=== PATIENT | female | born 1965 | race Caucasian/White ===

== ENCOUNTER 2017-01-23 22:36 | Emergency (ER) | payer MEDICAID, OTHER ==
[~2017-01-23] VITALS: Ht 162.6 cm; Wt 55.0 kg
[2017-01-23] MEDS ORDERED: ONDANSETRON HCL 4 MG/2 ML VIAL IV PUSH ONE (22:45)
[2017-01-23] MEDS ORDERED: SODIUM CHLORID 0.9% 500 ML INJ 500 ML IV ONE (22:45)
[2017-01-23] MEDS ORDERED: MORPHINE SULFATE 4 MG/ML INJ IV PUSH ONE (22:45)
[2017-01-23] MEDS ORDERED: SODIUM CHLORIDE 0.9% FLUSH 10 ML FLUSH IVF PRN (22:45)
--- NOTE | 2017-01-23 22:48 | PD ---
HPI Chief Complaint: chest pain Time Seen by Provider: 22:44 Travel History International Travel<30 days: No Contact w/Intl Traveler<30days: No Traveled to known affect area: No History of Present Illness HPI The patient is a 51-year-old female who presents to the emergency department via EMS for chest pain. The patient states she's had intermittent substernal chest pain for several months. The pain is intermittent, sharp, worse with palpation, and started earlier tonight after drinking alcohol. She denies any nausea, vomiting, shortness of breath, or diaphoresis. The patient does have a history of hypertension but is not currently on medications. She also has a history of tobacco use. The patient denies any known history of CAD , diabetes, hyperlipidemia, or significant family medical history for early heart disease. She denies any significant abdominal pain with her symptoms. She does admit to drinking alcohol earlier tonight, is unable to quantify the amount of alcohol she consumed. The patient received aspirin and nitroglycerin sublingual by EMS prior to arrival, however, this did not alleviate her symptoms. Symptoms are moderate, there are no alleviating or exacerbating factors. She denies any exertional symptoms. PFSH Past Medical History Bipolar Disorder: Yes Ovarian Cysts: Yes Past Surgical History Narrative Surgical Noncontributory Social History Alcohol Use: Yes (1 PINT DAILY) Tobacco Use: Yes (2 CIGARETTES DAILY) Substance Use: No Allergies-Medications (Allergen,Severity, Reaction): Coded Allergies: No Known Allergies (Unverified , 01/23/17) Reported Meds & Prescriptions Reported Meds & Active Scripts Active Reported Seroquel (Quetiapine Fumarate) 50 Mg Tab 50 Mg PO HS Review of Systems Except as stated in HPI: all other systems reviewed are Neg HENT: No: Lightheadedness Cardiovascular: Positive: Chest Pain or Discomfort Respiratory: Positive: Pleuritic Pain, No: Shortness of Breath Gastrointestinal: No: Nausea, Vomiting, Abdominal Pain Musculoskeletal: No: Weakness, Edema Psychiatric: Positive: Substance Abuse (alcohol abuse) Physical Exam Narrative GENERAL: Awake, alert, nontoxic-appearing 51-year-old female who appears her stated age and is in no acute respiratory distress. SKIN: Focused skin assessment warm/dry. The patient does have a rash just located in the inguinal region, examined in the presence of a female nurse. It is within the underwear distribution, erythematous, slightly elevated, with a few satellite lesions. Unsure if this is fungal versus contact dermatitis. HEAD: Atraumatic. Normocephalic. EYES: Pupils equal and round. Mild injection bilateral. ENT: No nasal bleeding or discharge. Breath smells of alcohol. NECK: Trachea midline. No JVD. CARDIOVASCULAR: Regular rate and rhythm. No murmur appreciated. Sternal border is tender to palpation and reproduces symptoms. RESPIRATORY: No accessory muscle use. Clear to auscultation. Breath sounds equal bilaterally. GASTROINTESTINAL: Abdomen soft, non-tender, nondistended. No rebound tenderness. MUSCULOSKELETAL: No obvious deformities. No clubbing. No cyanosis. No edema. NEUROLOGICAL: Awake and alert. No obvious cranial nerve deficits. Motor grossly within normal limits. Normal speech. PSYCHIATRIC: Appears intoxicated. Data Data Last Documented VS Vital Signs Date Time Temp Pulse Resp B/P Pulse Ox O2 Delivery O2 Flow Rate FiO2 01/24/17 02:09 88 18 122/80 98 Room Air 01/24/17 00:18 2 01/23/17 22:50 98.1 Orders Electrocardiogram (01/23/17 22:44) Ckmb (Isoenzyme) Profile (01/23/17 22:44) Complete Blood Count With Diff (01/23/17 22:44) Comprehensive Metabolic Panel (01/23/17 22:44) Magnesium (Mg) (01/23/17 22:44) Prothrombin Time / Inr (Pt) (01/23/17 22:44) Act Partial Throm Time (Ptt) (01/23/17 22:44) Troponin I (01/23/17 22:44) Lipase (01/23/17 22:44) Chest, Single Ap (01/23/17 22:44) Ecg Monitoring (01/23/17 22:44) Bilateral Bp Monitoring (01/23/17 22:44) Iv Access Insert/Monitor (01/23/17 22:44) Oximetry (01/23/17 22:44) Oxygen Administration (01/23/17 22:44) Morphine Inj (Morphine Inj) (01/23/17 22:45) Sodium Chloride 0.9% Flush (Ns Flush) (01/23/17 22:45) Sodium Chlorid 0.9% 500 Ml Inj (Ns 500 M (01/23/17 22:45) Ondansetron Inj (Zofran Inj) (01/23/17 22:45) Alcohol (Ethanol) (01/23/17 22:48) CKMB (01/23/17 22:50) CKMB% (01/23/17 22:50) Troponin I (01/24/17 01:50) Labs Laboratory Tests Test 01/23/17 01/24/17 22:50 01:43 White Blood Count 3.1 TH/MM3 Red Blood Count 3.59 MIL/MM3 Hemoglobin 12.8 GM/DL Hematocrit 35.9 % Mean Corpuscular Volume 99.9 FL Mean Corpuscular Hemoglobin 35.8 PG Mean Corpuscular Hemoglobin 35.8 % Concent Red Cell Distribution Width 14.5 % Platelet Count 128 TH/MM3 Mean Platelet Volume 7.8 FL Neutrophils (%) (Auto) 31.9 % Lymphocytes (%) (Auto) 55.4 % Monocytes (%) (Auto) 8.3 % Eosinophils (%) (Auto) 3.6 % Basophils (%) (Auto) 0.8 % Neutrophils # (Auto) 1.0 TH/MM3 Lymphocytes # (Auto) 1.7 TH/MM3 Monocytes # (Auto) 0.3 TH/MM3 Eosinophils # (Auto) 0.1 TH/MM3 Basophils # (Auto) 0.0 TH/MM3 CBC Comment DIFF FINAL Differential Comment Prothrombin Time 10.9 SEC Prothromb Time International 1.0 RATIO Ratio Activated Partial 26.4 SEC Thromboplast Time Sodium Level 145 MEQ/L Potassium Level 3.5 MEQ/L Chloride Level 108 MEQ/L Carbon Dioxide Level 27.8 MEQ/L Anion Gap 9 MEQ/L Blood Urea Nitrogen 10 MG/DL Creatinine 0.67 MG/DL Estimat Glomerular Filtration 92 ML/MIN Rate Random Glucose 86 MG/DL Calcium Level 8.4 MG/DL Magnesium Level 1.8 MG/DL Total Bilirubin 0.4 MG/DL Aspartate Amino Transf 113 U/L (AST/SGOT) Alanine Aminotransferase 68 U/L (ALT/SGPT) Alkaline Phosphatase 100 U/L Total Creatine Kinase 215 U/L Creatine Kinase MB 1.2 NG/ML Creatine Kinase MB % 0.6 % Troponin I LESS THAN 0.02 LESS THAN 0.02 NG/ML NG/ML Total Protein 7.6 GM/DL Albumin 3.9 GM/DL Lipase 170 U/L Ethyl Alcohol Level 332 MG/DL MDM Medical Decision Making Medical Screen Exam Complete: Yes Emergency Medical Condition: Yes Medical Record Reviewed: Yes Interpretation(s) EKG reveals normal sinus rhythm with a rate 85. Q wave noted in lead 3. Last Impressions Chest X-Ray 01/23/17 2244 Signed Impressions: Service Date/Time: Monday, January 23, 2017 22:40 - CONCLUSION: Atelectasis at the lung bases. Otherwise, no acute cardiopulmonary abnormality is identified. Dilip Keith MD Laboratory Tests Test 01/23/17 01/24/17 22:50 01:43 White Blood Count 3.1 TH/MM3 Red Blood Count 3.59 MIL/MM3 Hemoglobin 12.8 GM/DL Hematocrit 35.9 % Mean Corpuscular Volume 99.9 FL Mean Corpuscular Hemoglobin 35.8 PG Mean Corpuscular Hemoglobin 35.8 % Concent Red Cell Distribution Width 14.5 % Platelet Count 128 TH/MM3 Mean Platelet Volume 7.8 FL Neutrophils (%) (Auto) 31.9 % Lymphocytes (%) (Auto) 55.4 % Monocytes (%) (Auto) 8.3 % Eosinophils (%) (Auto) 3.6 % Basophils (%) (Auto) 0.8 % Neutrophils # (Auto) 1.0 TH/MM3 Lymphocytes # (Auto) 1.7 TH/MM3 Monocytes # (Auto) 0.3 TH/MM3 Eosinophils # (Auto) 0.1 TH/MM3 Basophils # (Auto) 0.0 TH/MM3 CBC Comment DIFF FINAL Differential Comment Prothrombin Time 10.9 SEC Prothromb Time International 1.0 RATIO Ratio Activated Partial 26.4 SEC Thromboplast Time Sodium Level 145 MEQ/L Potassium Level 3.5 MEQ/L Chloride Level 108 MEQ/L Carbon Dioxide Level 27.8 MEQ/L Anion Gap 9 MEQ/L Blood Urea Nitrogen 10 MG/DL Creatinine 0.67 MG/DL Estimat Glomerular Filtration 92 ML/MIN Rate Random Glucose 86 MG/DL Calcium Level 8.4 MG/DL Magnesium Level 1.8 MG/DL Total Bilirubin 0.4 MG/DL Aspartate Amino Transf 113 U/L (AST/SGOT) Alanine Aminotransferase 68 U/L (ALT/SGPT) Alkaline Phosphatase 100 U/L Total Creatine Kinase 215 U/L Creatine Kinase MB 1.2 NG/ML Creatine Kinase MB % 0.6 % Troponin I LESS THAN 0.02 LESS THAN 0.02 NG/ML NG/ML Total Protein 7.6 GM/DL Albumin 3.9 GM/DL Lipase 170 U/L Ethyl Alcohol Level 332 MG/DL Differential Diagnosis Differential diagnosis includes alcohol intoxication, costochondritis, pleurisy , GERD, esophageal spasm, pancreatitis, acute coronary syndrome, pleural effusion, pneumonia, pulmonary embolism. Narrative Course IV was established, labs are drawn and sent, and the patient was placed on cardiac telemetry monitoring and continuous pulse oximetry monitoring. EKG was ordered and interpreted. The patient received aspirin and nitroglycerin sublingual prior to arrival which did not alleviate her symptoms. Lipase level was sent to lab. Chest x-ray reveals atelectasis, otherwise unremarkable. The patient did tell the nurse that she had a rash in the inguinal region, therefore , inguinal region was examined in the presence of a female nurse. The patient does have a rash that appears to be within the distribution of her underwear, however, there is a few satellite lesions. This could be fungal versus contact dermatitis or irritant from her underwear. The patient's alcohol level is 332. The initial troponin was negative, therefore, repeat troponin at 3 hours was ordered. The second troponin is negative, patient will be discharged home when she is able to ambulate has a safe disposition home. Diagnosis Primary Impression: Alcohol intoxication Qualified Code: F10.920 - Alcohol intoxication, uncomplicated Additional Impressions: Atypical chest pain Rash of groin Patient Instructions: General Instructions Additional Instructions: Decrease alcohol intake. Take a baby aspirin daily. Follow-up with your primary physician. Return if symptoms worsen or progress. Med/Other Pt SpecificInfo: Other (take a baby aspirin daily.) Scripts Nystatin-Triamcinolone 100,000-0.1 Unit/Gm Cream1 Applic TOPICAL BID #30 GM Ref 0 Prov:Percy Chiu MD 01/24/17 Disposition: 01 DISCHARGE HOME Condition: Stable Percy Chiu MD Jan 23, 2017 22:48
[2017-01-23 22:50] VITALS: BP 119/75; PULSE 93; RESP 20; TEMP 98.1; O2SAT 95
[2017-01-23] MEDS ORDERED: SERO50TA PO (22:52)
--- NOTE | 2017-01-23 23:06 | RADRPT ---
EXAM DATE/TIME: 01/23/2017 22:40 [facility] COMPARISON: No previous studies available for comparison. INDICATIONS : Chest pain. MEDICAL HISTORY : None. SURGICAL HISTORY : None. ENCOUNTER: Initial ACUITY: 1 day PAIN SCORE: 10/10 LOCATION: Bilateral chest FINDINGS: Portable AP view of the chest demonstrates a normal-sized cardiac silhouette. No effusion, consolidat ion, or pneumothorax is visualized. The bones and soft tissues demonstrate no acute abnormality. Ther e is atelectasis at the lung bases. CONCLUSION: Atelectasis at the lung bases. Otherwise, no acute cardiopulmonary abnormality is identified. Dilip Keith MD on January 23, 2017 at 23:04 Board Certified Radiologist. This report was verified electronically.
[2017-01-23 23:15] LABS: BASOPHIL % 0.8 % (0.0-2.0); EOSINOPHIL # 0.1 TH/MM3 (0-0.4); EOSINOPHIL % 3.6 % (0.0-4.0); HEMATOCRIT 35.9 % (35.0-46.0); HEMO FLAGS DIFF FINAL; LYMPH % 55.4 % (9.0-44.0); LYMPHOCYTE # 1.7 TH/MM3 (1.0-4.8); MEAN CELL VOLUME 99.9 FL (80.0-100.0); MEAN CORPUSCULAR HEMOGLOBIN 35.8 PG (27.0-34.0); MEAN CORPUSCULAR HGB CONC 35.8 % (32.0-36.0); MONO % 8.3 % (0.0-8.0); NEUT % 31.9 % (16.0-70.0); PLATELET COUNT 128 TH/MM3 (150-450); RED BLOOD COUNT 3.59 MIL/MM3 (4.00-5.30); RED CELL DISTRIBUTION WIDTH 14.5 % (11.6-17.2); WHITE BLOOD COUNT 3.1 TH/MM3 (4.0-11.0)
[2017-01-23 23:25] LABS: APTT (PATIENT) 26.4 SEC (24.3-30.1); PROTHROMBIN TIME - PATIENT 10.9 SEC (9.8-11.6)
[2017-01-23 23:33] LABS: ALT (GPT) 68 U/L (10-53); ANION GAP 9 MEQ/L (5-15); AST (GOT) 113 U/L (15-37); BICARBONATE 27.8 MEQ/L (21.0-32.0); BLOOD UREA NITROGEN 10 MG/DL (7-18); CHLORIDE 108 MEQ/L (98-107); GLOMERULAR FILTRATION RATE 92 ML/MIN (>89); MAGNESIUM 1.8 MG/DL (1.5-2.5); POTASSIUM 3.5 MEQ/L (3.5-5.1); SODIUM (NA) 145 MEQ/L (136-145)
[2017-01-23 23:40] LABS: ALKALINE PHOSPHATASE 100 U/L (45-117); CREATINE KINASE 215 U/L (26-192); TOTAL BILIRUBIN ADULT 0.4 MG/DL (0.2-1.0)
[2017-01-23 23:47] VITALS: BP 126/82; PULSE 86; RESP 18; O2SAT 98
[2017-01-23 23:52] LABS: CKMB 1.2 NG/ML (0.5-3.6)
[2017-01-24 00:18] VITALS: BP_SYST 127; BP_SYST 131; BP_DIAS 70; BP_DIAS 78; PULSE 89; RESP 18; O2SAT 99
[2017-01-24 01:13] VITALS: BP 110/64; PULSE 79; RESP 16; O2SAT 95
[2017-01-24 02:09] VITALS: BP 122/80; PULSE 88; RESP 18; O2SAT 98
[2017-01-24] MEDS ORDERED: NYSTCRE29 TOPICAL (02:48)
--- NOTE | 2017-01-24 14:20 | EKG ---
Date Performed: 01/23/2017 Time Performed: 22:49:36 PTAGE: 51 years EKG: Sinus rhythm Normal EKG Compared to prior tracing no significant change PREVIOUS TRACING : 02/28/2015 13.06 DOCTOR: Jose Rafael Chou Interpretating Date/Time 01/24/2017 14:19:03
== END 2017-01-24 08:34 | disposition home or self-care (01) ==
LOC: NEPE 22:36
DX: F10.920 Alcohol use, unspecified with intoxication, uncomplicated (principal); R07.89 Other chest pain; R21 Rash and other nonspecific skin eruption; F31.9 Bipolar disorder, unspecified; F17.210 Nicotine dependence, cigarettes, uncomplicated; Z79.899 Other long term (current) drug therapy
CPT/HCPCS: 71010; 80053; 80307; 82550; 82552; 83690; 83735; 84484; 85025; 85610; 85730; 93005; 96361; 96374; 96375; 99285; J2270; J2405; J7040

== ENCOUNTER 2017-04-19 13:14 | Emergency (ER) | payer OTHER ==
[~2017-04-19] VITALS: Ht 162.6 cm; Wt 65.0 kg
[~2017-04-19 13:14] MED LIST: NYSTCRE29 TOPICAL; SERO50TA PO
[2017-04-19 13:16] VITALS: BP 120/84; PULSE 93; RESP 20; TEMP 97.7; O2SAT 99
[2017-04-19] MEDS ORDERED: CEPH-460 PO (13:32)
[2017-04-19] MEDS ORDERED: BACT800T5 PO (13:32)
[2017-04-19] MEDS ORDERED: PERM5CRE11 TOPICAL (13:32)
--- NOTE | 2017-04-19 13:33 | PD ---
HPI Chief Complaint: Skin Problem Time Seen by Provider: 13:30 Travel History International Travel<30 days: No Contact w/Intl Traveler<30days: No Traveled to known affect area: No History of Present Illness HPI 51-year-old female presents to emergency department complaining of a generalized itchy rash 2 months. Reports scabbed areas on her buttocks that have been on and off for the past 2 months also. Denies fever, vomiting. Reports alcohol use daily. Patient smells of EtOH. Has tried a topical antibiotic cream with no relief of symptoms. Denies new lotions, soaps, detergents, medications, foods, environmental exposures. Apparently a friend of her name Bradford also has the same symptoms. Location is to back, abdomen, buttocks. Symptoms are mild in severity. No known aggravating or relieving factors. No known allergies. Has no other medical complaints. No other modifying factors or associated signs and symptoms. PFSH Past Medical History Bipolar Disorder: Yes ?: Not Ovarian Cysts: Yes Social History Alcohol Use: Yes (1 PINT DAILY) Tobacco Use: Yes (2 CIGARETTES DAILY) Substance Use: Yes Allergies-Medications (Allergen,Severity, Reaction): Coded Allergies: No Known Allergies (Unverified , 01/23/17) Reported Meds & Prescriptions Reported Meds & Active Scripts Active Keflex (Cephalexin) 500 Mg Cap 500 Mg PO Q6H 10 Days Bactrim DS (Sulfamethoxazole-Trimethoprim) 800-160 Mg Tab 1 Tab PO BID 10 Days Elimite Topical (Permethrin) 5% Cream 1 Applic TOPICAL ONCE Nystatin-Triamcinolone 100,000-0.1 Unit/Gm Cream 1 Applic TOPICAL BID Reported Seroquel (Quetiapine Fumarate) 50 Mg Tab 50 Mg PO HS Review of Systems Except as stated in HPI: all other systems reviewed are Neg Physical Exam Narrative GENERAL: Well-nourished, well-developed female patient, in no acute distress; smells of EtOH; afebrile, nontoxic-appearing SKIN: Warm and dry. Generalized erythremic pimple-like rash to back and abdomen. Scabbed lesions noted to bilateral buttocks; all areas are surrounded by minimal erythema; without drainage. Areas on her back appear excoriated but without cellulitic process noted. HEAD: Atraumatic. Normocephalic. EYES: Pupils equal and round. No scleral icterus. No injection or drainage. ENT: Mucosa pink and moist. Airway patent. NECK: Trachea midline. CARDIOVASCULAR: Regular rate. RESPIRATORY: No accessory muscle use. GASTROINTESTINAL: Round. MUSCULOSKELETAL: No obvious deformities. No clubbing. No cyanosis. No edema. NEUROLOGICAL: Awake and alert. Oriented 3. No obvious cranial nerve deficits. Motor grossly within normal limits. Normal speech. PSYCHIATRIC: Appropriate mood and affect; insight and judgment normal. Data Data Last Documented VS Vital Signs Date Time Temp Pulse Resp B/P (MAP) Pulse Ox O2 Delivery O2 Flow Rate FiO2 04/19/17 13:16 97.7 93 20 120/84 (96) 99 Room Air Orders Orders Ed Discharge Order (04/19/17 13:34) MDM Medical Decision Making Medical Screen Exam Complete: Yes Emergency Medical Condition: Yes Medical Record Reviewed: Yes Differential Diagnosis Scabies, bedbugs, MRSA, MSSA, folliculitis, abscess of buttocks, cellulitis Narrative Course 51-year-old female physical exam consistent with rash and other nonspecific skin eruption to her abdomen, back, buttocks. Rash to her back and abdomen appear consistent with possible scabies rash. The lesions to her buttocks appear consistent with possible skin infection. Patient smells of EtOH. She is afebrile and nontoxic-appearing. She denies fever, vomiting. I'll prescribe Elimite cream and treat empirically with Keflex and Bactrim for possible skin infection. Elimite, Keflex, Bactrim prescribed for home. Instructed patient to follow up with primary care provider. Patient verbalizes understanding and agreement with treatment plan. Patient is medically cleared and stable for discharge. Discussed reasons to return to the emergency department. Patient agrees with treatment plan. The patients vital signs are stable and the patient is stable for outpatient follow-up and treatment. Patient discharged home, stable and in no acute distress. Diagnosis Primary Impression: Rash and other nonspecific skin eruption Referrals: [facility] [employer] Primary Care Physician Patient Instructions: Acute Rash (ED), General Instructions, Scabies (ED) Additional Instructions: Antibiotics as prescribed Elimite cream as directed; repeat in one week as needed Soaking in cool water or apply cool, wet washcloths to irritated areas to minimize itching Apply anti-itch creams, such as calamine lotion, to relieve pain and itching as needed Fdoi-mrm-byfogep antihistamines as needed and as directed to relieve allergic symptoms caused by scabies Wash all pillows, linens, blankets, etc. in hot water and dry in hot dryer Bag and all unwashable linens, [place] stuffed animals, etc. in a tightly sealed garbage bag for up to 2 weeks Follow-up with assistant director of residence life Follow-up with primary care provider Return to the emergency department immediately with worsening of symptoms Med/Other Pt SpecificInfo: Prescription(s) given Scripts Cephalexin (Keflex) 500 Mg Cap 500 MG PO Q6H for Infection for 10 Days, #40 CAP 0 Refills Prov: Lisa Taylor 04/19/17 Sulfamethoxazole-Trimethoprim (Bactrim DS) 800-160 Mg Tab 1 TAB PO BID for Infection for 10 Days, #20 TAB 0 Refills Prov: Lisa Taylor 04/19/17 Permethrin Topical (Elimite Topical) 5% Cream 1 APPLIC TOPICAL ONCE for Scabies, #1 TUBE 1 Refill Prov: Lisa Taylor 04/19/17 Disposition: 01 DISCHARGE HOME Condition: Stable Lisa Taylor Apr 19, 2017 13:33
== END 2017-04-19 13:54 | disposition home or self-care (01) ==
LOC: NEPK 13:14
DX: R21 Rash and other nonspecific skin eruption (principal); Z72.0 Tobacco use
CPT/HCPCS: 99284

== ENCOUNTER 2017-07-31 15:34 | Emergency (ER) | payer OTHER ==
[~2017-07-31] VITALS: Ht 160 cm; Wt 61.4 kg
[~2017-07-31 15:34] MED LIST changes: +BACT800T5 PO; +CEPH-460 PO; -NYSTCRE29 TOPICAL; +PERM5CRE11 TOPICAL
[2017-07-31 15:59] VITALS: BP 156/100; PULSE 90; RESP 18; TEMP 98.5; O2SAT 98
[2017-07-31] MEDS ORDERED: BACT800T5 PO (16:36)
--- NOTE | 2017-07-31 16:37 | PD ---
HPI Chief Complaint: Skin Problem Time Seen by Provider: 16:23 Travel History International Travel<30 days: No Contact w/Intl Traveler<30days: No Traveled to known affect area: No History of Present Illness HPI This is a 52-year-old female here with right hand pain and swelling since this morning. She reports she was cleaning out the gutters of her trailer when something "bit her" she had immediate pain and swelling. She denies history of IV drug use. No fever chills. She did not attempt to ice or elevate the extremity. He has pain at the site of the hand which is constant, nonradiating severity moderate. No aggravating or alleviating factors. PFSH Past Medical History Bipolar Disorder: Yes Ovarian Cysts: Yes Social History Alcohol Use: Yes (1 PINT DAILY) Tobacco Use: Yes (2 CIGARETTES DAILY) Substance Use: Yes Allergies-Medications (Allergen,Severity, Reaction): Coded Allergies: No Known Allergies (Unverified Adverse Reaction, Unknown, 07/31/17) Reported Meds & Prescriptions Reported Meds & Active Scripts Active Bactrim DS (Sulfamethoxazole-Trimethoprim) 800-160 Mg Tab 1 Tab PO BID Reported Seroquel (Quetiapine Fumarate) 50 Mg Tab 50 Mg PO HS Review of Systems Except as stated in HPI: all other systems reviewed are Neg General / Constitutional: No: Fever, Chills, Weight Gain, Weight Loss, Other HENT: No: Headaches Cardiovascular: No: Chest Pain or Discomfort Respiratory: No: Shortness of Breath Gastrointestinal: No: Abdominal Pain Genitourinary: No: Dysuria Physical Exam Narrative GENERAL: Alert and oriented 52-year-old female. Patient is hostile and argumentative during exam SKIN: Hematoma noted to the right hand dorsal aspect. No surrounding saline is. HEAD: Normocephalic. Atraumatic. EYES: No injection or drainage. NECK: Supple, trachea midline. MUSCULOSKELETAL: No cyanosis. Notable swelling, tenderness, mild ecchymosis to the right hand dorsal aspect. Patient moves all fingers freely. Normal sensation. Brisk cap refill. Data Data Last Documented VS Vital Signs Date Time Temp Pulse Resp B/P (MAP) Pulse Ox O2 Delivery O2 Flow Rate FiO2 07/31/17 15:59 98.5 90 18 156/100 (118) 98 Room Air Orders Orders Ice / Cold Pack PRN (07/31/17 16:37) Ed Discharge Order (07/31/17 16:37) [facility] Medical Decision Making Medical Screen Exam Complete: Yes Emergency Medical Condition: Yes Differential Diagnosis Hematoma, abscess, sub-cutaneous retained foreign body Narrative Course This is a 52-year-old female here with right hand pain and swelling since this morning. The patient is very hostile and argumentative making exam quite difficult. She reports she was cleaning out the gutters of her trailer when something "bit her" she had immediate pain and swelling. She reports she possibly contused area on something. She denies history of IV drug use. On exam she has what appears to be a developing hematoma to the dorsal aspect of the right hand. There is swelling and mild ecchymosis. The area is marked with a wound Pen. She has full range of motion and normal sensation of all digits. Brisk cap refill. She refused x-ray to rule out retained foreign body or fracture. Risk of refusing x-ray discussed. She verbalizes understanding. She'll be treated for potential abscess formation and instructed to return for recheck in one to 2 days. Diagnosis Primary Impression: Hematoma Referrals: [facility] Additional Instructions: Ice and elevate the extremity. Take the antibiotics as prescribed. Follow-up for recheck in 1- 2 days. Scripts Sulfamethoxazole-Trimethoprim (Bactrim DS) 800-160 Mg Tab 1 TAB PO BID for Infection, #20 TAB 0 Refills Prov: Marisol Vincent 07/31/17 Disposition: 01 DISCHARGE HOME Condition: Stable Marisol Vincent Jul 31, 2017 16:37
== END 2017-07-31 16:55 | disposition home or self-care (01) ==
LOC: NEPK 15:34
DX: S60.221A Contusion of right hand, initial encounter (principal); F31.9 Bipolar disorder, unspecified; Z72.0 Tobacco use
CPT/HCPCS: 99283

== ENCOUNTER 2017-08-30 14:56 | Emergency (ER) | payer OTHER ==
[~2017-08-30] VITALS: Ht 160 cm; Wt 62.0 kg
[~2017-08-30 14:56] MED LIST changes: -CEPH-460 PO; -PERM5CRE11 TOPICAL
[2017-08-30 15:17] VITALS: BP 141/81; PULSE 85; RESP 17; TEMP 98.3; O2SAT 97
[2017-08-30] MEDS ORDERED: SODIUM CHLOR 0.9% 1000 ML INJ 1,000 ML IV SCH (16:23)
--- NOTE | 2017-08-30 16:28 | PD ---
HPI Chief Complaint: Edema Time Seen by Provider: 16:22 Travel History International Travel<30 days: No Contact w/Intl Traveler<30days: No Traveled to known affect area: No History of Present Illness HPI 52-year-old female presents emergency department with 2 hour history of right ankle pain and swelling. Patient feels she may have been bit by an insect of some sort. She denies injury to the area. Patient has localized pain and swelling to the right lateral ankle. She denies fever, chills, shortness of breath, wheezing, or difficulty swallowing. Her chief complaint is pain. Pain is rated as 9 out of 10. Patient has no known drug allergies. PFSH Past Medical History Bipolar Disorder: Yes Depression: Yes Diminished Hearing: No Immunizations Current: No Ovarian Cysts: Yes Social History Alcohol Use: Yes (1 PINT DAILY) Tobacco Use: Yes (2 CIGARETTES DAILY) Substance Use: Yes Allergies-Medications (Allergen,Severity, Reaction): Coded Allergies: No Known Allergies (Unverified Adverse Reaction, Unknown, 08/30/17) Reported Meds & Prescriptions Reported Meds & Active Scripts Active Tramadol (Tramadol HCl) 50 Mg Tab 50 Mg PO Q6H PRN Bactrim DS (Sulfamethoxazole-Trimethoprim) 800-160 Mg Tab 1 Tab PO BID Reported Seroquel (Quetiapine Fumarate) 50 Mg Tab 50 Mg PO HS Review of Systems Except as stated in HPI: all other systems reviewed are Neg General / Constitutional: No: Fever Eyes: No: Visual changes HENT: No: Headaches Cardiovascular: No: Chest Pain or Discomfort Respiratory: No: Shortness of Breath Gastrointestinal: No: Abdominal Pain Genitourinary: No: Dysuria Musculoskeletal: No: Pain Skin: Positive Lesions (See history of present illness per), No Rash Neurologic: No: Weakness Psychiatric: No: Depression Endocrine: No: Polydipsia Hematologic/Lymphatic: No: Easy Bruising Physical Exam Narrative GENERAL: Patient appears in moderate distress. SKIN: Warm and dry. Normal color. Normal turgor. Patient is swelling over the right lateral ankle. There is no erythema. HEAD: Atraumatic. Normocephalic. EYES: Pupils equal and round. No scleral icterus. No injection or drainage. ENT: No nasal bleeding or discharge. Mucous membranes pink and moist. Pharynx is clear. Uvula is midline. No swelling. Airways patent. NECK: Trachea midline. Supple nontender CARDIOVASCULAR: Regular rate and rhythm. RESPIRATORY: No accessory muscle use. Clear to auscultation. Breath sounds equal bilaterally. GASTROINTESTINAL: Abdomen soft, non-tender, nondistended. Hepatic and splenic margins not palpable. MUSCULOSKELETAL: Extremities without clubbing, cyanosis, or edema. No obvious deformities. Patient has tenderness with palpation over the right lateral ankle. NEUROLOGICAL: Awake and alert. No obvious cranial nerve deficits. Motor grossly within normal limits. Five out of 5 muscle strength in the arms and legs. Normal speech. PSYCHIATRIC: Appropriate mood and affect; insight and judgment normal. Data Data Last Documented VS Vital Signs Date Time Temp Pulse Resp B/P (MAP) Pulse Ox O2 Delivery O2 Flow Rate FiO2 08/30/17 15:17 98.3 85 17 141/81 (101) 97 Orders Orders Complete Blood Count With Diff (08/30/17 15:19) Comprehensive Metabolic Panel (08/30/17 15:19) Ecg Monitoring (08/30/17 16:23) Iv Access Insert/Monitor (08/30/17 16:23) Oximetry (08/30/17 16:23) Diphenhydramine Inj (Benadryl Inj) (08/30/17 16:30) Prednisone (Deltasone) (08/30/17 16:30) Famotidine Inj (Pepcid Inj) (08/30/17 16:30) Sodium Chlor 0.9% 1000 Ml Inj (Ns 1000 M (08/30/17 16:23) Sodium Chloride 0.9% Flush (Ns Flush) (08/30/17 16:30) Ankle, Complete (Wnj3mej) (08/30/17 16:23) Morphine Inj (Morphine Inj) (08/30/17 16:45) Ondansetron Inj (Zofran Inj) (08/30/17 16:45) Crutches (08/30/17 16:45) Boot Fracture (08/30/17 ) Morphine Inj (Morphine Inj) (08/30/17 17:00) Labs Laboratory Tests Test 08/30/17 15:45 White Blood Count 3.6 TH/MM3 Red Blood Count 3.54 MIL/MM3 Hemoglobin 12.8 GM/DL Hematocrit 36.4 % Mean Corpuscular Volume 102.6 FL Mean Corpuscular Hemoglobin 36.2 PG Mean Corpuscular Hemoglobin Concent 35.3 % Red Cell Distribution Width 16.1 % Platelet Count 167 TH/MM3 Mean Platelet Volume 7.0 FL Neutrophils (%) (Auto) 69.8 % Lymphocytes (%) (Auto) 20.8 % Monocytes (%) (Auto) 5.4 % Eosinophils (%) (Auto) 2.7 % Basophils (%) (Auto) 1.3 % Neutrophils # (Auto) 2.5 TH/MM3 Lymphocytes # (Auto) 0.8 TH/MM3 Monocytes # (Auto) 0.2 TH/MM3 Eosinophils # (Auto) 0.1 TH/MM3 Basophils # (Auto) 0.0 TH/MM3 CBC Comment DIFF FINAL Differential Comment Blood Urea Nitrogen 9 MG/DL Creatinine 0.65 MG/DL Random Glucose 100 MG/DL Total Protein 7.9 GM/DL Albumin 3.9 GM/DL Calcium Level 8.4 MG/DL Alkaline Phosphatase 133 U/L Aspartate Amino Transf (AST/SGOT) 115 U/L Alanine Aminotransferase (ALT/SGPT) 62 U/L Total Bilirubin 0.4 MG/DL Sodium Level 140 MEQ/L Potassium Level 3.2 MEQ/L Chloride Level 104 MEQ/L Carbon Dioxide Level 25.4 MEQ/L Anion Gap 11 MEQ/L Estimat Glomerular Filtration Rate 95 ML/MIN [facility] Medical Decision Making Medical Screen Exam Complete: Yes Emergency Medical Condition: Yes Differential Diagnosis Right lateral ankle pain. Insect bite. Ankle sprain. Narrative Course Patient is medically stable at time of exam Labs ordered including CBC, and CMP. IV access is obtained the patient is given 20 mg Pepcid IV, 25 mg diphenhydramine IV, and 40 mg prednisone p.o. X-ray of the right ankle is ordered as well. X-ray shows minimally displaced distal fibular fracture on the right ankle. Previous medications are canceled. Patient is given 2 mg morphine IV as well as 4 mg Zofran IV. Patient is placed in an orthotic boot and crutches. Patient is to follow-up with Dr. Marie with a mandatory follow-up placed. Patient is given a prescription for Tramadol 50 mg 1 every 6 hours as needed # 20. Diagnosis Primary Impression: Closed right ankle fracture Qualified Codes: S82.891A - Other fracture of right lower leg, initial encounter for closed fracture Referrals: Clint Marie MD Patient Instructions: Ankle Fracture (ED), Crutch Instructions (ED), General Instructions Additional Instructions: X-ray shows minimally displaced distal fibular fracture on the right ankle. Patient is given 2 mg morphine IV as well as 4 mg Zofran IV. Patient is placed in an orthotic boot and crutches. Patient is to follow-up with Dr. Marie with a mandatory follow-up placed. Patient is given a prescription for Tramadol 50 mg 1 every 6 hours as needed # 20. Med/Other Pt SpecificInfo: Prescription(s) given Scripts Tramadol (Tramadol) 50 Mg Tab 50 MG PO Q6H Y for PAIN, #20 TAB 0 Refills Prov: Faraz Soriano MD 08/30/17 Disposition: 01 DISCHARGE HOME Condition: Stable José Miguel Artis Aug 30, 2017 16:28
[2017-08-30] MEDS ORDERED: SODIUM CHLORIDE 0.9% FLUSH 10 ML FLUSH IV FLUSH PRN (16:30)
[2017-08-30] MEDS ORDERED: diphenhydrAMINE HCL 50 MG/ML VIAL IVP ONE (16:30)
[2017-08-30] MEDS ORDERED: FAMOTIDINE 20 MG/2 ML VIAL IV PUSH ONE (16:30)
[2017-08-30] MEDS ORDERED: predniSONE 20 MG TAB PO ONE (16:30)
--- NOTE | 2017-08-30 16:44 | RADRPT ---
EXAM DATE/TIME: 08/30/2017 16:31 [facility] COMPARISON: No previous studies available for comparison. INDICATIONS : Right ankle pain. Patient states she got an insect bite. MEDICAL HISTORY : None. SURGICAL HISTORY : None. ENCOUNTER: Initial ACUITY: 1 day PAIN SCORE: 10/10 LOCATION: Right ankle. FINDINGS: 3 views of the right ankle demonstrate an oblique minimally displaced fracture of the distal fibular metaphysis at the base of the lateral malleolus. No other fracture or dislocation is identified. The ankle mortise is intact. There is lateral ankle soft tissue swelling. CONCLUSION: Oblique minimally displaced distal fibular metaphyseal fracture with adjacent soft tissue swelling. Dilip Keith MD on August 30, 2017 at 16:42 Board Certified Radiologist. This report was verified electronically.
[2017-08-30] MEDS ORDERED: ONDANSETRON HCL 4 MG/2 ML VIAL IV PUSH ONE (16:45)
[2017-08-30] MEDS ORDERED: MORPHINE SULFATE 2 MG/ML INJ IM ONE (16:45)
[2017-08-30 16:49] LABS: AUTOMATED NEUTROPHIL # 2.5 TH/MM3 (1.8-7.7); BASOPHIL % 1.3 % (0.0-2.0); EOSINOPHIL # 0.1 TH/MM3 (0-0.4); EOSINOPHIL % 2.7 % (0.0-4.0); HEMATOCRIT 36.4 % (35.0-46.0); HEMOGLOBIN 12.8 GM/DL (11.6-15.3); LYMPH % 20.8 % (9.0-44.0); LYMPHOCYTE # 0.8 TH/MM3 (1.0-4.8); MEAN CELL VOLUME 102.6 FL (80.0-100.0); MEAN CORPUSCULAR HEMOGLOBIN 36.2 PG (27.0-34.0); MEAN CORPUSCULAR HGB CONC 35.3 % (32.0-36.0); MONO % 5.4 % (0.0-8.0); MONOCYTE # 0.2 TH/MM3 (0-0.9); NEUT % 69.8 % (16.0-70.0); PLATELET COUNT 167 TH/MM3 (150-450); RED BLOOD COUNT 3.54 MIL/MM3 (4.00-5.30); RED CELL DISTRIBUTION WIDTH 16.1 % (11.6-17.2); WHITE BLOOD COUNT 3.6 TH/MM3 (4.0-11.0)
[2017-08-30] MEDS ORDERED: MORPHINE SULFATE 2 MG/ML INJ IV PUSH ONE (17:00)
[2017-08-30 17:05] LABS: ALBUMIN 3.9 GM/DL (3.4-5.0); ALT (GPT) 62 U/L (10-53); AST (GOT) 115 U/L (15-37); BICARBONATE 25.4 MEQ/L (21.0-32.0); BLOOD UREA NITROGEN 9 MG/DL (7-18); CALCIUM 8.4 MG/DL (8.5-10.1); CHLORIDE 104 MEQ/L (98-107); CREATININE 0.65 MG/DL (0.50-1.00); GLOMERULAR FILTRATION RATE 95 ML/MIN (>89); GLUCOSE,RANDOM 100 MG/DL (74-106); SODIUM (NA) 140 MEQ/L (136-145)
[2017-08-30 17:07] LABS: ALKALINE PHOSPHATASE 133 U/L (45-117); TOTAL BILIRUBIN ADULT 0.4 MG/DL (0.2-1.0); TOTAL PROTEIN 7.9 GM/DL (6.4-8.2)
[2017-08-30] MEDS ORDERED: TRAM50TA PO (17:17)
== END 2017-08-30 18:01 | disposition home or self-care (01) ==
LOC: NEPD 14:56
DX: S82.891A Other fracture of right lower leg, initial encounter for closed fracture (principal); R22.41 Localized swelling, mass and lump, right lower limb; X58.XXXA Exposure to other specified factors, initial encounter; Z72.0 Tobacco use; Z72.89 Other problems related to lifestyle
CPT/HCPCS: 73610; 80053; 85025; 96374; 96375; 99284; E0113; J2270; J2405; J7030; L2114

== ENCOUNTER 2017-10-11 08:32 | Emergency (ER) | payer OTHER ==
[~2017-10-11] VITALS: Ht 160 cm; Wt 65.0 kg
[~2017-10-11 08:32] MED LIST changes: +TRAM50TA PO
[2017-10-11 08:42] VITALS: BP 178/101; PULSE 86; RESP 16; TEMP 96.7; O2SAT 100
--- NOTE | 2017-10-11 09:01 | PD ---
HPI Chief Complaint: Pain: Acute or Chronic Time Seen by Provider: 08:47 Travel History International Travel<30 days: No Contact w/Intl Traveler<30days: No Traveled to known affect area: No History of Present Illness HPI 52-year-old female complains of neck pain, low back pain, right knee pain. Patient states that she fell yesterday. Patient denied loss of consciousness. Patient denies any headache. Patient stated she has mild aching pain to the neck and low back area. Patient complaint of severe pain localized the right knee. Patient states that she landed on her right knee. Patient states that pain is sharp pain diffuse over the right knee joint. Patient denies any pain radiation. Patient states the pain is worse with movement. On a scale of 1-10 the pain is a 10. Patient was seen in emergency room at the end of August with a fracture distal right fibula. Patient had a cast placement and the cast was removed recently. Patient was seen by orthopedist Dr. Marie. Patient also complained nausea vomiting since yesterday. Patient denies abdominal pain. Patient had a few glasses of wine yesterday. PFSH Past Medical History Bipolar Disorder: Yes Anxiety: Yes Depression: Yes Diminished Hearing: No Medical other: Yes (ETOH ABUSE) Musculoskeletal: Yes (FRACTURE TIBIA- FIBULA ) Immunizations Current: No Tetanus Vaccination: Never Vaccinated Influenza Vaccination: No ?: Not Menopausal: Yes Ovarian Cysts: Yes Social History Alcohol Use: Yes (ETOH ABUSE) Tobacco Use: Yes (2 CIGARETTES DAILY) Substance Use: Yes (HX MARIJUANA) Allergies-Medications (Allergen,Severity, Reaction): Coded Allergies: No Known Allergies (Unverified Adverse Reaction, Unknown, 10/11/17) Reported Meds & Prescriptions Reported Meds & Active Scripts Active Reported Seroquel (Quetiapine Fumarate) 50 Mg Tab 50 Mg PO HS Review of Systems General / Constitutional: No: Fever Eyes: No: Visual changes HENT: No: Headaches Cardiovascular: No: Chest Pain or Discomfort Respiratory: No: Shortness of Breath Gastrointestinal: No: Abdominal Pain Genitourinary: No: Dysuria Musculoskeletal: Positive: Pain Skin: No Rash Neurologic: No: Weakness Psychiatric: No: Depression Endocrine: No: Polydipsia Hematologic/Lymphatic: No: Easy Bruising Physical Exam Narrative GENERAL: Well-nourished, well-developed patient. SKIN: Focused skin assessment warm/dry. HEAD: Normocephalic. EYES: No scleral icterus. No injection or drainage. NECK: Supple, trachea midline. No JVD or lymphadenopathy. Mild tenderness on palpation paraspinal area cervical spine. No midline tenderness. CARDIOVASCULAR: Regular rate and rhythm without murmurs, gallops, or rubs. RESPIRATORY: Breath sounds equal bilaterally. No accessory muscle use. GASTROINTESTINAL: Abdomen soft, non-tender, nondistended. MUSCULOSKELETAL: Patient has moderate soft tissue swelling and effusion to the right knee joint. Limited range of motion of the right knee joint secondary to pain. Knee joint stable. BACK: Mild to moderate tenderness in palpation lumbar area, without obvious deformity. No CVA tenderness. Neurologic exam normal. Data Data Last Documented VS Vital Signs Date Time Temp Pulse Resp B/P (MAP) Pulse Ox O2 Delivery O2 Flow Rate FiO2 10/11/17 08:42 96.7 86 16 178/101 (126) 100 Orders Orders Knee, Ltd (1 Or 2vws) (10/11/17 08:47) Spine, Cervical - Ltd (Ap&Lat) (10/11/17 08:47) Spine, Lumbar - Ltd (Ap & Lat) (10/11/17 08:47) Ct Knee W/O Contrast (10/11/17 ) Acetamin-Hydrocod 325-5 Mg ([place] 5-325 (10/11/17 12:00) Ondansetron Odt (Zofran Odt) (10/11/17 12:00) Splint Or Brace Apply/Monitor (10/11/17 11:48) Crutches (10/11/17 11:48) Sodium Chlor 0.9% 1000 Ml Inj (Ns 1000 M (10/11/17 12:00) Basic Metabolic Panel (Bmp) (10/11/17 11:51) Ondansetron Inj (Zofran Inj) (10/11/17 12:00) Labs Laboratory Tests Test 10/11/17 12:20 Blood Urea Nitrogen 12 MG/DL Creatinine 0.68 MG/DL Random Glucose 103 MG/DL Calcium Level 9.4 MG/DL Sodium Level 137 MEQ/L Potassium Level 3.5 MEQ/L Chloride Level 97 MEQ/L Carbon Dioxide Level 29.9 MEQ/L Anion Gap 10 MEQ/L Estimat Glomerular Filtration Rate 91 ML/MIN [facility] Medical Decision Making Medical Screen Exam Complete: Yes Emergency Medical Condition: Yes Differential Diagnosis Differential diagnosis including strain, fracture, dislocation. Narrative Course 52-year-old female with neck injury, low back injury, right knee injury. Status post fall last night. Knee immobilizer and crutches given. Normal saline solution 1 L IV bolus. Zofran 4 mg IV. Lortab 5/325, 1 tablet p.o. given. Diagnosis Primary Impression: Injury of ligament of right knee Qualified Codes: S89.91XA - Unspecified injury of right lower leg, initial encounter Additional Impression: Gastroenteritis Patient Instructions: General Instructions Additional Instructions: Take medications as directed. Ice pack as needed the right knee. Follow-up with orthopedist. Zofran as needed for nausea vomiting. Med/Other Pt SpecificInfo: Prescription(s) given Scripts Tramadol (Ultram) 50 Mg Tab 50 MG PO Q6H Y for PAIN, #20 TAB 0 Refills Prov: Zach De Santiago MD 10/11/17 Meloxicam (Mobic) 15 Mg Tab 15 MG PO DAILY for Pain, #20 TAB 0 Refills Prov: Zach De Santiago MD 10/11/17 Ondansetron Odt (Zofran Odt) 4 Mg Tab 4 MG SL Q6HR Y for Nausea/Vomiting, #10 TAB 0 Refills Prov: Zach De Santiago MD 10/11/17 Disposition: 01 DISCHARGE HOME Condition: Stable Zach De Santiago MD Oct 11, 2017 09:01
--- NOTE | 2017-10-11 09:40 | RADRPT ---
EXAM DATE/TIME: 10/11/2017 09:12 [facility] COMPARISON: No previous studies available for comparison. INDICATIONS : Fall last night on scooter. MEDICAL HISTORY : None. SURGICAL HISTORY : None. ENCOUNTER: Initial ACUITY: 1 day PAIN SCORE: 10/10 LOCATION: Right Knee FINDINGS: There is a large suprapatellar knee joint effusion. No acute fracture or dislocation is noted. Mild d egenerative changes are noted involving the patellofemoral and medial femorotibial joints. CONCLUSION: Large suprapatellar knee joint effusion. No acute fracture or dislocation. Mild degenerative changes involving the patellofemoral and medial femorotibial joints. Sina Ash MD on October 11, 2017 at 9:37 Board Certified Radiologist. This report was verified electronically.
--- NOTE | 2017-10-11 09:42 | RADRPT ---
EXAM DATE/TIME: 10/11/2017 09:17 [facility] COMPARISON: No previous studies available for comparison. INDICATIONS : Fall last night on scooter. MEDICAL HISTORY : None. SURGICAL HISTORY : None. ENCOUNTER: Initial ACUITY: 1 day PAIN SCORE: 6/10 LOCATION: Bilateral L-spine FINDINGS: There is a moderate compression deformity involving the T12 vertebral body of indeterminate age. No c ompression fracture of lumbar spine is noted. Mild degenerative changes and scoliosis are noted. No s pondylolisthesis or spondylolysis is noted. CONCLUSION: 1. Moderate compression deformity involving the T12 vertebral body of indeterminate age. 2. No acute compression fracture, spondylolisthesis or spondylolysis of the lumbar spine. 3. Mild degenerative changes and scoliosis of the thoracolumbar spine. Sina Ash MD on October 11, 2017 at 9:38 Board Certified Radiologist. This report was verified electronically.
--- NOTE | 2017-10-11 11:00 | RADRPT ---
EXAM DATE/TIME: 10/11/2017 09:14 [facility] COMPARISON: No previous studies available for comparison. INDICATIONS : Fall last night on scooter. MEDICAL HISTORY : None. SURGICAL HISTORY : None. ENCOUNTER: Initial ACUITY: 1 day PAIN SCORE: 2/10 LOCATION: Bilateral C-spine FINDINGS: Minimal loss of vertebral body height at C5. The preservation of vertebral body heights. Anatomic a lignment. No fracture. CONCLUSION: Normal ulcerative body height C5. Flexion extension films may be of benefit to exclude instability. Buck Castro MD FACR on October 11, 2017 at 10:56 Board Certified Radiologist. This report was verified electronically.
--- NOTE | 2017-10-11 11:22 | RADRPT ---
EXAM DATE/TIME: 10/11/2017 10:11 [facility] COMPARISON: KNEE RIGHT LTD (1 OR 2 VWS), October 11, 2017, 9:12. INDICATIONS : Fall yesterday, now with right leg pain and swelling. RADIATION DOSE: 9.19 CTDIvol (mGy) MEDICAL HISTORY : Substance abuse. SURGICAL HISTORY : None. ENCOUNTER: Initial ACUITY: 2 days PAIN SCALE: 10/10 LOCATION: Right distal leg TECHNIQUE: Volumetric scanning of the knee was performed. Using automated exposure control and adjustment of th e mA and/or kV according to patient size, radiation dose was kept as low as reasonably achievable to obtain optimal diagnostic quality images. DICOM format image data is available electronically for re view and comparison. FINDINGS: There is a very large knee joint effusion which extends into the suprapatellar bursa. There is no acu te fracture or dislocation of the right knee. Mild degenerative changes are noted involving the media l femoral tibial joint and the patellofemoral joint. No focal lytic or sclerotic lesion is noted. CONCLUSION: 1. Very large knee joint effusion which extends into the suprapatellar bursa. 2. Mild degenerative changes involving the medial femoral tibial joint and patellofemoral joint. 3. No acute fracture, dislocation or other focal bony abnormality. Sina Ash MD on October 11, 2017 at 11:15 Board Certified Radiologist. This report was verified electronically.
[2017-10-11] MEDS ORDERED: SODIUM CHLOR 0.9% 1000 ML INJ 1,000 ML IV ONE (12:00)
[2017-10-11] MEDS ORDERED: ACETAMINOPHEN/HYDROcodone 325 MG/5 MG TAB PO ONE (12:00)
[2017-10-11] MEDS ORDERED: ONDANSETRON ODT 4 MG TAB PO ONE (12:00)
[2017-10-11] MEDS ORDERED: ONDANSETRON HCL 4 MG/2 ML VIAL IV PUSH ONE (12:00)
[2017-10-11 12:54] LABS: BICARBONATE 29.9 MEQ/L (21.0-32.0); CALCIUM 9.4 MG/DL (8.5-10.1); CREATININE 0.68 MG/DL (0.50-1.00)
[2017-10-11] MEDS ORDERED: ZOFR4TAB3 SL (13:14)
[2017-10-11] MEDS ORDERED: TRAM50 PO (13:16)
[2017-10-11] MEDS ORDERED: MOBI15TA PO (13:16)
[2017-10-11 13:31] VITALS: BP 182/110; PULSE 88; RESP 16; O2SAT 97
== END 2017-10-11 14:44 | disposition home or self-care (01) ==
LOC: NEPC 08:32
DX: S89.91XA Unspecified injury of right lower leg, initial encounter (principal); K52.9 Noninfective gastroenteritis and colitis, unspecified; S19.9XXA Unspecified injury of neck, initial encounter; M25.461 Effusion, right knee; M41.9 Scoliosis, unspecified; M51.35 Other intervertebral disc degeneration, thoracolumbar region; W19.XXXA Unspecified fall, initial encounter
CPT/HCPCS: 72040; 72100; 73560; 73700; 80048; 96374; 99285; E0113; J2405; J7030; L1830

== ENCOUNTER 2018-08-19 02:49 | Inpatient (IN) ==
[2018-08-19 03:02] VITALS: TEMP 98.3
[2018-08-19 04:06] LABS: Hematocrit 32.7 % (35.0-46.0); Hemoglobin 11.2 gm/dL (11.6-15.3); Mean Corpuscular HGB Conc 34.3 % (32.0-36.0); Mean Corpuscular Hemoglobin 40.2 pg (27.0-34.0); Mean Platelet Volume 9.4 fL (7.0-11.0); Platelet Count 203 th/mm3 (150-450); Red Blood Count 2.79 mil/mm3 (4.00-5.30); White Blood Count 9.3 th/mm3 (4.0-11.0)
--- NOTE | 2018-08-19 04:07 | ED ---
HPI General Chief Complaint: Abdominal Pain Stated Complaint: Abd pain Time Seen by Provider: 08/19/18 03:04 Source: patient Mode of arrival: EMS Limitations: no limitations History of Present Illness HPI narrative: 53-year-old female came to the emergency room with history of shortness of breath that started since yesterday. Patient says that she left the hospital 1 week back after she was seen and treated for cirrhosis of liver. Patient appears to be quite jaundiced and says that she does not have history of COPD or asthma. She does not require oxygen at home. Her pulse ox was 98% on room air. Patient also says that she has been nauseous but has been nauseous for a while. Rest of her vital signs are within normal limit. Patient has been taking her medications like she supposed to. Related Data Home Medications Medication Instructions Recorded Confirmed lisinopril 0 mg PO DAILY 08/10/18 08/19/18 quetiapine [Seroquel] 50 mg PO HS 08/10/18 08/19/18 Previous Rx's Medication Instructions Recorded folic acid 1 mg PO DAILY #30 tab 08/12/18 lactulose 30 ml PO BID #2000 ml 08/12/18 multivitamin 1 cap PO DAILY #30 cap 08/12/18 thiamine HCl (vitamin B1) 100 mg PO DAILY #30 tab 08/12/18 Allergies Allergy/AdvReac Type Severity Reaction Status Date / Time No Known Allergies Allergy Verified 08/10/18 12:28 Review of Systems ROS: all other systems reviewed are negative [facility] Medical History Medical History Liver failure (Acute) Bipolar 1 disorder (Acute) Hypertension (Acute) Surgical History Surgical History H/O: (Acute) Social History Social History Substance History: No History of Abuse Second Hand Smoke Exposure: No Smoking Status: Never smoker How Often Do You Have a Drink Containing Alcohol: Never Recent Travel in [facility] within the Last 8 Weeks: No Recent Out of Country Travel within the Last 8 Weeks: No Immunization History Tetanus Immunization: Unsure Exam Narrative Exam Narrative: GENERAL: Awake, alert, mild distress SKIN: Focused skin assessment warm/dry. Jaundice, spider hemangioma, Caput HEAD: Atraumatic. Normocephalic. EYES: Pupils equal and round. Bilateral scleral icterus. No injection or drainage. ENT: No nasal bleeding or discharge. Mucous membranes pink and moist. NECK: Trachea midline. No JVD. CARDIOVASCULAR: Regular rate and rhythm. No murmur appreciated. RESPIRATORY: No accessory muscle use. Clear to auscultation. Breath sounds equal bilaterally. GASTROINTESTINAL: Abdomen soft, non-tender, nondistended. Hepatic and splenic margins not palpable. MUSCULOSKELETAL: No obvious deformities. No clubbing. No cyanosis. No edema. NEUROLOGICAL: Awake and alert. No obvious cranial nerve deficits. Motor grossly within normal limits. Normal speech. Tremulous, flapping tremors of the hands PSYCHIATRIC: Appropriate mood and affect; insight and judgment normal. Course Initial Documented Vital Signs Temperature 98.3 F 08/19/18 02:56 Pulse Rate 89 08/19/18 02:56 Respiratory Rate 20 08/19/18 02:56 Blood Pressure 122/72 08/19/18 02:56 Pulse Oximetry 98 08/19/18 02:56 Last Documented Vital Signs Temperature 98.3 F 08/19/18 02:56 Pulse Rate 100 H 08/19/18 07:17 Respiratory Rate 19 08/19/18 07:17 Blood Pressure 115/71 08/19/18 07:17 Pulse Oximetry 97 08/19/18 07:17 Medical Decision Making MDM Narrative Medical decision making narrative: 4:07 AM awaiting for blood test results. Patient was given Zofran for the nausea. I asked her if she has seen a GI specialist yet and she said she saw while she was in the hospital but has not been given any outpatient referrals yet. 5:47 AM blood test results are back and once again patient is significantly hyperbilirubinemia. Magnesium is low and so was her calcium and potassium. Replacement has been ordered. My concern is that patient has no GI referral in spite of her significantly abnormal physical and laboratory findings. Patient is clearly in florid portal hypertension. I discussed the case with the hospitalist was agreed to admit the patient. Patient does require GI consultation and referral as an outpatient established prior to discharge hopefully. 6:30 AM patient told me that she would not like to stay. Her daughter is coming from [place] for 4 days and she would come back after that. She was begging to go home almost. I explained to her that she can go as long as she understands the risk of leaving which would include . Patient was in full capacity to make decisions for herself and she signed AMA. The hospitalist was informed about this. Medical Screen Exam Complete: Yes Emergency Medical Condition: Yes Lab Data Result diagrams: 08/19/18 03:52 08/19/18 03:52 Lab Results 08/19/18 08/19/18 08/19/18 Range/Units 03:52 03:52 05:15 WBC 9.3 (4.0-11.0) th/mm3 RBC 2.79 L (4.00-5.30) mil/mm3 Hgb 11.2 L (11.6-15.3) gm/dL Hct 32.7 L (35.0-46.0) % MCV 117.0 H (80.0-100.0) fL MCH 40.2 H (27.0-34.0) pg MCHC 34.3 (32.0-36.0) % RDW 16.0 (11.6-17.2) % Plt Count 203 D (150-450) th/mm3 MPV 9.4 (7.0-11.0) fL Prelim Diff (Auto) Manual diff required WBC Differential Manual diff final Seg Neuts % (Manual) 77 H (16-70) % Band Neuts % (Manual) 5 (0-6) % Lymphocytes % (Manual) 11 (9-44) % Monocytes % (Manual) 6 (0-8) % Eosinophils % (Manual) 1 (0-4) % Abs Neuts (Manual) 7.6 (1.8-7.7) th/mm3 Nucleated RBCs/100 WBC 1 H (0-0) /100 WBC Differential Comment . Platelet Estimate Normal (Normal) Platelet Morphology Normal (Normal) Pappenheimer Bodies Present H (None) Target Cells 1+ H (None) Keratocytes Occ H (None) Sodium 138 (136-145) meq/L Potassium 4.1 (3.5-5.1) meq/L Chloride 105 (98-107) meq/L Carbon Dioxide 25.7 (21.0-32.0) meq/L Anion Gap 7 (5-15) meq/L BUN 11 (7-18) mg/dL Creatinine 0.98 (0.50-1.00) mg/dL Estimated GFR 59 L (>89) mL/min Random Glucose 88 (74-106) mg/dL Calcium 7.8 L (8.5-10.1) mg/dL Magnesium 1.4 L (1.5-2.5) mg/dL Total Bilirubin 10.3 H (0.2-1.0) mg/dL AST 168 H (15-37) U/L ALT 49 (10-53) U/L Alkaline Phosphatase 348 H (45-117) U/L Ammonia 41 H (11-32) mcmol/L Total Protein 7.2 D (6.4-8.2) g/dL Albumin 2.0 L (3.4-5.0) g/dL Lipase 165 (73-393) U/L Imaging Data Radiologist's impression: Chest X-Ray 08/19/18 03:43 CONCLUSION: No acute disease Discharge Plan Discharge Disposition Patient Disposition: 07 Against Medical Advice Discharge Order Discharge Orders: AMA Discharge (Routine); Ordered 08/19/18 Ordered By: Gonzalez Littlejohn ED Use Only Admit Order (Routine); Ordered 08/19/18 Ordered By: Gonzalez Littlejohn Physicians Team ED Provider: Gonzalez Littlejohn Primary Care Provider: Dc Kang Attending Provider: Dilia Durbin Other Providers: Junie Ochoa Discharge Interventions Interventions: Vital Signs Last Done: 08/19/18 03:01 Status ED Status: Admitted Patient
--- NOTE | 2018-08-19 04:15 | XR ---
EXAM DATE: 08/19/2018 4:07 AM EST AGE/SEX: 53 years / Female INDICATIONS: . Shortness of breath, bilateral lower extremity swelling. CLINICAL DATA: This is the patient's initial encounter. Patient reports that signs and symptoms have been present for 1 day and indicates a pain score of 0/10. MEDICAL/SURGICAL HISTORY: Cirrhosis. Hypertension. section. COMPARISON: [facility] [place], CHEST 1V SINGLE AP, 08/10/2018. . FINDINGS: PA and lateral views of the chest demonstrate the lungs to be symmetrically aerated without evidence of mass, infiltrate or effusion. The cardiomediastinal contours are unremarkable. Osseous structures are intact. CONCLUSION: No acute disease Electronically signed by: Dilip Leyva MD Board Certified Radiologist 08/19/2018 4:14 AM EST
[2018-08-19 04:38] LABS: Alanine Aminotransferase 49 U/L (10-53); Anion Gap 7 meq/L (5-15); Aspartate Aminotransferase 168 U/L (15-37); Blood Urea Nitrogen 11 mg/dL (7-18); Calcium 7.8 mg/dL (8.5-10.1); Carbon Dioxide 25.7 meq/L (21.0-32.0); Chloride 105 meq/L (98-107); Glomerular Filtration Rate 59 mL/min (>89); Glucose,Random 88 mg/dL (74-106); Lipase 165 U/L (73-393); Magnesium 1.4 mg/dL (1.5-2.5); Potassium 4.1 meq/L (3.5-5.1); Sodium 138 meq/L (136-145)
[2018-08-19 04:40] LABS: Alkaline Phosphatase 348 U/L (45-117); Total Protein 7.2 g/dL (6.4-8.2)
[2018-08-19 04:42] LABS: Eosinophils 1 % (0-4); Lymphocytes 11 % (9-44); Monocytes 6 % (0-8); Platelet Estimate Normal (Normal); Platelet Morphology Normal (Normal); Tallied Nucleated RBC 1 (0-0)
[2018-08-19 04:45] LABS: Pappenheimer Bodies Present; Target Cells 1+
[2018-08-19] MEDS ORDERED: Calcium Gluconate Inj 1 GM in Dextrose 5% in Water Inj 100 ML IV.SIG ONE ×2 (05:05)
[2018-08-19] MEDS ORDERED: Mag Sulf 1 gm/100 ml Premix 100 ML IV.SIG ONE (05:05)
[2018-08-19] MEDS ORDERED: LORazepam 1 MG Tablet PO PRN (05:52)
[2018-08-19] MEDS ORDERED: Haloperidol Inj 5 MG/ML Ampul IV.PUSH PRN (05:52)
[2018-08-19] MEDS ORDERED: Naloxone Inj 0.4 MG/ML Vial IV.PUSH PRN (05:55)
[2018-08-19] MEDS ORDERED: Bisacodyl 10 MG Supp RECTAL PRN (05:55)
[2018-08-19 07:17] VITALS: BP 115/71; PULSE 100; RESP 19; O2SAT 97
--- NOTE | 2018-08-19 08:43 | ECG ---
Date Performed: 08/19/2018 Time Performed: 03:07:32 PTAGE: 53 years EKG: Sinus rhythm NORMAL ECG No significant change from prior electrocardiogram. PREVIOUS TRACING : 01/23/2017 22.49 DOCTOR: Albert Montes Interpretating Date/Time 08/19/2018 08:43:19
[2018-08-19] MEDS ORDERED: Spironolactone 50 MG Tablet PO SCH (09:00)
[2018-08-19] MEDS ORDERED: Multivitamin/Minerals Therapeutic Tablet PO SCH (09:00)
[2018-08-19] MEDS ORDERED: Furosemide 40 MG Tablet PO SCH (09:00)
[2018-08-19] MEDS ORDERED: Folic Acid 1 MG Tablet PO SCH (09:00)
[2018-08-19] MEDS ORDERED: Propranolol 10 MG Tablet PO SCH (09:00)
[2018-08-19] MEDS ORDERED: Senna/Docusate Sodium 8.6/50 MG Tablet PO SCH (09:00)
== END 2018-08-19 07:41 | disposition left against medical advice (07) | DRG 443 ==
LOC: NEPE 02:49 → NEDA 05:46
PROVIDERS: ADMIT Family Medicine; ATTEND Family Medicine
CPT/HCPCS: 71020; 71046; 80053; 82140; 83690; 83735; 85025; 90774; 90775; 90784; 93005; 96374; 96375; 99285; C8952; J0610; J2405